=== PATIENT | female | born 1960 | race African-American/Black ===

== ENCOUNTER 2016-05-02 23:04 | Inpatient (IN) ==
[2016-05-02] MEDS ORDERED: HYDROmorphone 2 MG/1 ML VIAL IV STA (23:53)
[2016-05-02] MEDS ORDERED: ONDANSETRON 4 MG/2 ML VIAL IV STA (23:53)
[2016-05-02] MEDS ORDERED: HYDROmorphone 2 MG/1 ML VIAL ONE (23:57)
[2016-05-02] MEDS ORDERED: ONDANSETRON 4 MG/2 ML VIAL ONE (23:57)
[2016-05-03 00:04] LABS: Basophils % 0.1 % (0.0-0.8); Hematocrit 40.5 VOL% (35.7-47.0); Hemoglobin 14.3 GM/DL (12.0-16.0); Immature Granulocytes % 0.2 %; Immature Granulocytes Absolute 0.02 #; Lymphocytes % 11.2 % (21.3-54.2); Mean Corpuscular HGB Conc 35.3 GM/DL (32-36); Mean Corpuscular Hemoglobin 29 PG (27-34); Mean Corpuscular Volume 82.7 FL (87-102); Mean Platelet Volume 10.4 FL (9.6-12.0); Monocytes # 0.2 10*3/uL (0.11-0.8); Monocytes % 1.9 % (1.7-12.7); Neutrophils # 7.4 10*3/uL (1.4-7.4); Neutrophils % 86.6 % (38.7-73.9); Platelet Count 267 10*3/uL (130-400); White Blood Count 8.5 10*3/uL (4.5-13.71)
[2016-05-03 00:11] LABS: PT Patient Result 11.1 SECS; Partial Thromboplastin Time 28.1 SECS (0-40)
[2016-05-03 00:18] LABS: Albumin 4.3 G/DL (3.4-5.0); Bilirubin,Total 0.6 MG/DL (0.2-1.0); Osmolality,Calculated 281.3 MOS/KG (273-304); Potassium 3.7 MMOL/L (3.5-5.1); Total Protein 8.3 G/DL (6.4-8.3)
[2016-05-03] MEDS ORDERED: PANTOPRAZOLE 40 MG VIAL IV STA (01:12)
[2016-05-03] MEDS ORDERED: PANTOPRAZOLE 40 MG VIAL IV ONE (01:18)
--- NOTE | 2016-05-03 01:23 | Emergency Department Note ---
Foster Hurt Brittany, am scribing for, and in the presence of, Bianca Arias DO 23:46. Hugo Hurt Debra, DO, personally performed the services described in this documentation, ascribed by Juany Hutchison in my presence, and it is both accurate and complete . Arrival - Arrival Chief Complaint: Abdominal / Flank Pain Stated Complaint: Acid Reflux ED Nursing Triage Note: c/c nauseated, severe abd pain, started today. Has not been able to eat today. Has not taken BP meds today Mode of Arrival: Wheelchair Limitations: No Limitations Source: Patient, RN Notes Reviewed - History of Present Illness HPI Narrative: Patient is a 55 y/o black female presenting to the ED with c/o paraumbilical abdominal pain with an onset of today. Patient notes having some associated chills, "spitting up," nausea and hematochezia. She states that she is unsure as to whether or not she may have had fever. Patient reports a history of Acid Reflux, but denies a history of Pancreatitis or ETOH abuse. Patient has no other complaint/pain in the ED at this time. Allergies/Adverse Reactions: Allergies Allergy/AdvReac Type Severity Reaction Status Date / Time No Known Allergies Allergy Verified 05/02/16 23:19 Home Medications: Home Medications Medication Instructions Recorded Confirmed Type Lisinopril/Hydrochlorothiazide 1 tablet PO DAILY 04/19/16 05/02/16 History [Lisinopril-Hctz 20-12.5 mg Tab] Loratadine 1 tablet PO DAILY 04/19/16 05/02/16 History Naproxen [Naprosyn Tab] 500 mg PO BID #60 tablet 04/19/16 05/02/16 Rx Tramadol HCl [Tramadol Tab] 50 mg PO DIRECTED PRN 04/19/16 05/02/16 History predniSONE TAB [PredniSONE] 20 mg PO DAILY #15 tablet 04/19/16 05/02/16 Rx Review of System - Review of System 12 point system: reviewed and no additional remarkable complaints except as stated - Review of System Constitutional: Present: chills Gastrointestinal: Present: abdominal pain, nausea, hematochezia Medical,Surgical,& Family Hx - Medical History Cardio: History of: Hypertension Gastrointestinal: History of: GERD Musculoskeletal: History of: Degenerative Disk Disease - Social History Smoking Status: Former smoker Frequency of Alcohol Use: None Type of Drug Use: None Exam Vital Signs: Vital Signs Temperature 97.7 F 05/02/16 23:14 Pulse Rate 77 05/02/16 23:14 Respiratory Rate 20 05/02/16 23:14 Blood Pressure 184/155 05/02/16 23:14 O2 Sat by Pulse Oximetry 99 05/02/16 23:14 - General General appearance: alert, in distress (appears to be uncomfortable) - Head Head exam: Present: atraumatic, normocephalic - Eye Eye exam: Present: PERRL, EOMI - ENT ENT exam: Present: mucous membranes moist, TM's normal bilaterally - Neck Neck exam: Present: full ROM, trachea midline. Absent: tenderness - Chest Chest inspection: Present: symmetric chest wall rise. Absent: tenderness - Respiratory Respiratory exam: Present: normal lung sounds bilaterally. Absent: rales, rhonchi, wheezes - Cardiovascular Cardiovascular exam: Present: regular rate, normal rhythm, normal heart sounds. Absent: murmur, rubs, gallop - Abdominal Exam Abdominal exam: Present: soft, tenderness (diffuse, greater in the paraumbilical area), guarding (mild), normal bowel sounds. Absent: distention, rebound - Extremities Exam Extremities exam: Present: full ROM. Absent: tenderness - Back Exam Back exam: Present: full ROM. Absent: tenderness - Neurological Exam Neurological exam: Present: alert, oriented X3, CN II-XII intact. Absent: motor sensory deficit - Psychiatric Psychiatric exam: Present: normal affect, normal mood - Skin Skin exam: Present: warm, dry, intact, normal color Course Course Narrative: spoke with Dr khan who will admit pt Results - Labs CBC & BMP: 05/02/16 23:37 05/02/16 23:37 Lab Results: I have reviewed the patients labs Labs: Laboratory Tests 05/02/16 05/02/16 23:37 23:37 WBC 8.5 RBC 4.90 Hgb 14.3 Hct 40.5 MCV 82.7 L Plt Count 267 Neut % (Auto) 86.6 H Lymph % (Auto) 11.2 L Lymph # (Auto) 1.0 L INR 1.0 PT Patient/Control Mix 11.1 Circ Anticoag PTT 28.1 Laboratory Tests 05/02/16 23:37 Sodium 141 Potassium 3.7 Chloride 107 Carbon Dioxide 19 L Anion Gap 18.7 H BUN 10 Creatinine 0.90 Glucose 136 H Globulin 4.0 H Albumin/Globulin Ratio 1.0 L Laboratory Tests 05/02/16 23:37 Blood Type B POSITIVE Antibody Screen Negative Laboratory Tests 05/02/16 00:05 Urine Color Yellow Urine Appearance Slightly hazy Urine pH 5.0 Ur Specific [place] 1.025 Urine Protein 100 Urine Glucose (UA) Negative Urine Ketones 80 Urine Blood Moderate Urine Nitrate Negative Urine Bilirubin Negative Urine Urobilinogen < 2.0 H Urine Leukocytes Negative Urine RBC 21 Urine WBC 2 Ur Squamous Epith Cells Occasional Urine Mucus Few Disposition Clinical Impression: Colitis Case discussed with: patient Disposition: Still a Patient Condition: Stable Instructions: Colitis (ED) Time of Disposition: 02:09
[2016-05-03 01:28] LABS: Apearance,Urine Slightly Hazy (Clear); Bilirubin,Urine Negative (Negative); Blood, Urine Moderate mg/dL (Negative); Glucose,Urine (UA) Negative (Negative); Ketones,Urine 80 mg/dL (Negative); Mucus,Urine Few /LPF (Occasional); Nitrite,Urine Negative (Negative); Protein,Urine 100 MG/DL; RBC,Urine 21 /HPF (0-4); Squamous Epithelial Cell,Urine Occasional /HPF (0-10); Urine Color Yellow (Yellow); Urine Specific Gravity 1.025 (1.001-1.035); Urine Urobilinogen < 2.0 EU/DL (0.2-1.0); WBC,Urine 2 /HPF (0-6)
[2016-05-03] MEDS ORDERED: CIPROFLOXACIN INJ 400 MG in PREMIX 1 EACH IV STA (02:06)
[2016-05-03] MEDS ORDERED: metroNIDAZOLE INJ 500 MG in PREMIX 1 EACH IV STA (02:06)
[2016-05-03] MEDS ORDERED: CIPROFLOXACIN 400 MG/200 ML PREMIX IV ONE (02:07)
[2016-05-03] MEDS ORDERED: metroNIDAZOLE 500 MG/100 ML PREMIX IV ONE (02:07)
[2016-05-03] MEDS ORDERED: traMADol 50 MG TABLET PO PRN (03:51)
[2016-05-03] MEDS ORDERED: MORPHINE 2 MG/1 ML SYRINGE IV PRN (03:51)
[2016-05-03] MEDS ORDERED: ONDANSETRON 4 MG/2 ML VIAL IV PRN (03:51)
[2016-05-03] MEDS ORDERED: ACETAMINOPHEN 325 MG TABLET PO PRN (03:51)
[2016-05-03] MEDS ORDERED: ALUM/MAG/SIMETH/LIDO VISC 1:1 30 ML BOTTLE PO STA (03:54)
[2016-05-03] MEDS ORDERED: ALUM/MAG/SIMETH/LIDO VISC 1:1 30 ML BOTTLE PO ONE (04:00)
[2016-05-03] MEDS ORDERED: SODIUM CHLORIDE 0.9% 1,000 ML IV SCH (04:00)
--- NOTE | 2016-05-03 04:03 | Hospitalist History & Physical ---
Assessment and Plan (1) Acute colitis Status: Acute Current Visit: Yes (2) Small bowel intussusception Status: Acute Current Visit: Yes (3) Hypertension Status: Acute Current Visit: Yes (4) Hematochezia Status: Acute Assessment and plan: Plan: 05/03: Admit for IV antibiotics, will start Cipro/Flagyl. Obtain blood cultures. Unclear exactly the etiology of her colitis (ischemic/infectious), no personal history of IBD. Apparently the ER physician spoke with the surgeon who will follow up the patient in the morning. In the meantime supportive care in addition to her antibiotics. Current Visit: Yes History of Present Illness Chief complaint: midabdominal pain, hematochezia History of present illness: Ms. Bruce Rios is a 55 year old female with hypertension and arthritis, who is here with 24 hours of acute worsening of midabdominal pain and hematochezia. She states she's had on and off for the last month. As of scant hematochezia and pain with defecation. She states she had a fairly unremarkable colonoscopy in July 2015 at [facility]. She's had some nausea with vomiting as well today. She rates her pain an 8 out of 10 at worst, currently relieved with pain medication. The pain is nonradiating and prior to receiving pain medication had been constant and severe. Her CT scan showed evidence of colitis and is very small segment of small bowel intussusception. Home Medications Medication Instructions Recorded Confirmed Type Lisinopril/Hydrochlorothiazide 1 tablet PO DAILY 04/19/16 05/02/16 History [Lisinopril-Hctz 20-12.5 mg Tab] Loratadine 1 tablet PO DAILY 04/19/16 05/02/16 History Naproxen [Naprosyn Tab] 500 mg PO BID #60 tablet 04/19/16 05/02/16 Rx Tramadol HCl [Tramadol Tab] 50 mg PO DIRECTED PRN 04/19/16 05/02/16 History predniSONE TAB [PredniSONE] 20 mg PO DAILY #15 tablet 04/19/16 05/02/16 Rx Allergies Allergy/AdvReac Type Severity Reaction Status Date / Time No Known Allergies Allergy Verified 05/02/16 23:19 Medical,Surgical,& Family Hx - Medical History Cardio: History of: Hypertension Endocrine: No history of: Diabetes Mellitus (NIDDM) Respiratory: No history of: COPD Gastrointestinal: History of: GERD Musculoskeletal: History of: Degenerative Disk Disease - Surgical History Reproductive Surgeries: Surgical HX of;: Tubal Ligation - Family History Family History: noncontributory - Social History Smoking Status: Former smoker Have you smoked in the last 12 months: No Frequency of Alcohol Use: None Type of Drug Use: None Marital Status: Unknown Functional capacity: independent ambulation Review of systems: A 12 point review of systems is negative except as specified in the HPI Exam - Constitutional Vitals: Period Temp Pulse Resp BP Sys/Syed Pulse Ox Last 24 Hr 97.7 F 77 20 184/155 99 Exam: EXAM: CONSTITUTIONAL: non toxic, NAD HEENT: NC, AT, OP benign, PATTI, EOMI CV: RRR no m/g/r RESP: clear B/L, no w/r/r GI: abd soft, mild mid/periumbilical tenderness to palpation, no rebound, ND, + bowel sounds INTEGUMENTARY: no lesions or rash EXTREMITIES: no c/c/e NEURO: no focal deficits PSYCH: unremarkable, A/O x3 Results - Labs CBC & BMP: 05/02/16 23:37 05/02/16 23:37 Lab Results: I have reviewed the past 24 hour labs - Diagnostic Findings Procedure: CT Abdomen and Pelvis: image reviewed by me, report reviewed by me
[2016-05-03] MEDS: metroNIDAZOLE INJ 500 MG in PREMIX 1 EACH IV SCH ×3 (04:56→21:47)
[2016-05-03 06:17] LABS: Basophils % 0.2 % (0.0-0.8); Hematocrit 38.8 VOL% (35.7-47.0); Hemoglobin 12.8 GM/DL (12.0-16.0); Immature Granulocytes % 0.4 %; Immature Granulocytes Absolute 0.04 #; Lymphocytes # 1.6 10*3/uL (1.4-4.0); Lymphocytes % 14.8 % (21.3-54.2); Mean Corpuscular Hemoglobin 28 PG (27-34); Mean Corpuscular Volume 85.1 FL (87-102); Mean Platelet Volume 10.1 FL (9.6-12.0); Monocytes # 0.8 10*3/uL (0.11-0.8); Monocytes % 7.3 % (1.7-12.7); Neutrophils # 8.3 10*3/uL (1.4-7.4); Neutrophils % 77.3 % (38.7-73.9); Platelet Count 266 10*3/uL (130-400); Red Blood Count 4.56 10*6/uL (3.8-5.5); Red Cell Distribution Width 13.4 % (9.3-17.3); White Blood Count 10.8 10*3/uL (4.5-13.71)
[2016-05-03 06:57] LABS: Calcium 9.5 MG/DL (8.5-10.1); Magnesium 2.1 MG/DL (1.8-2.4); Potassium 3.4 MMOL/L (3.5-5.1)
--- NOTE | 2016-05-03 06:58 | CT Report ---
Exam: CT abdomen pelvis w con Date: 05/03/2016 12:58 AM Comparison: None Indication: Generalized abdominal pain Technique: Sequential axial scans of the abdomen and pelvis were obtained following the injection of 100 cc of Omnipaque 350. Coronal and sagittal 2-D reconstructions were obtained. This exam was initially interpreted by [facility]. Total DLP: 557.90 Findings: No acute findings at the visualized lung bases. The liver is normal in size with no masses, dilated ducts, or calcified gallstones. The spleen, pancreas, adrenal glands, and kidneys have an unremarkable appearance. The abdominal aorta is normal in size with no adjacent adenopathy. Increased fluid in the stomach and small bowel. Short segment of possible small bowel intussusception in the medial right upper quarter on the initial scans only. The wall of the colon appears thickened. There is air in the appendix which is borderline in size the to minimally enlarged distally measuring 8 mm. No significant adjacent peripancreatic fluid or soft tissue stranding. The uterus is enlarged and contains multiple partially calcified uterine leiomyomata. There is associated compression of the urinary bladder. No free air or significant free fluid. Degenerative changes are noted with sclerosis especially at the L4-L5 disc space. Impression: Initial possible short segment intussusception of the small bowel in the medial right upper quadrant location on the initial scans only. Additional findings which can be seen with enteritis/colitis. The appendix is at the upper limits of normal in size to very minimally enlarged distally which makes it more difficult to exclude possible very early appendicitis as discussed in [facility] report.. Correlation with physical exam is recommended concerning this finding. Uterine enlargement with multiple calcified leiomyomata. It is difficult to exclude additional uterine pathology with these findings. PROCEDURE INTERPRETED AT [facility] DEPARTMENT OF RADIOLOGY Final Report Signed by: Dr. Sierra Berger
[2016-05-03] MEDS: CIPROFLOXACIN INJ 400 MG in PREMIX 1 EACH IV SCH ×2 (07:03→16:02)
[2016-05-03] MEDS: LISINOPRIL/HCTZ 20-12.5 MG TABLET PO SCH (09:53)
[2016-05-03] MEDS: predniSONE 20 MG TABLET PO SCH (09:53)
[2016-05-03] MEDS: POTASSIUM CHLORIDE 20 MEQ TABLET PO PRN (09:53)
[2016-05-03] MEDS: PANTOPRAZOLE 40 MG VIAL IV SCH (09:54)
[2016-05-03] MEDS: LORATADINE 10 MG TABLET PO SCH (09:54)
--- NOTE | 2016-05-03 11:16 | General Surgery Consult Note ---
Assessment and Plan (1) Small bowel intussusception Status: Acute Assessment and plan: I was consult for the management of small bowel intussusception. This is a normal finding on CT scans that just captures the small bowel during the phase of peristalsis were to telescope needed another segment of small bowel. It is not a pathologic condition. On delayed CT images, it actually had already resolved. There is no imaging follow-up this needed and no further workup needed. Please call back with any further questions. Current Visit: Yes History of Present Illness Chief complaint: abdominal pain History of present illness: Ms. Bruce Rios is a 55 year old female who has developed abdominal pain with some intermittent hematochezia and presented to the ER for evaluation. She has had have colitis but also had small bowel intussusception on her initial CT scan images that resolved on delayed images. Home Medications Medication Instructions Recorded Confirmed Type Lisinopril/Hydrochlorothiazide 1 tablet PO DAILY 04/19/16 05/02/16 History [Lisinopril-Hctz 20-12.5 mg Tab] Loratadine 1 tablet PO DAILY 04/19/16 05/02/16 History Naproxen [Naprosyn Tab] 500 mg PO BID #60 tablet 04/19/16 05/02/16 Rx Tramadol HCl [Tramadol Tab] 50 mg PO DIRECTED PRN 04/19/16 05/02/16 History predniSONE TAB [PredniSONE] 20 mg PO DAILY #15 tablet 04/19/16 05/02/16 Rx Allergies Allergy/AdvReac Type Severity Reaction Status Date / Time No Known Allergies Allergy Verified 05/02/16 23:19 Medical,Surgical,& Family Hx - Medical History Cardio: History of: Hypertension Endocrine: No history of: Diabetes Mellitus (NIDDM) Respiratory: No history of: COPD Gastrointestinal: History of: GERD Musculoskeletal: History of: Degenerative Disk Disease, Musculoskeletal Problems (osteoarthritis) - Surgical History Reproductive Surgeries: Surgical HX of;: Tubal Ligation - Family History Family History: Reports;: Family Cancer (father- type unknown), Family Hypertension (Mother and Father) - Social History Smoking Status: Former smoker Frequency of Alcohol Use: None Type of Drug Use: None - Constitutional Constitutional: Present: as per HPI - EENT Nose, mouth and throat: Present: as per HPI - Cardiovascular Cardiovascular: Present: as per HPI - Respiratory Respiratory: Present: as per HPI - Gastrointestinal Gastrointestinal: Present: as per HPI - Genitourinary Genitourinary: Present: as per HPI - Musculoskeletal Musculoskeletal: Present: as per HPI - Neurological Neurological: Present: as per HPI - Endocrine Endocrine: Present: as per HPI Hematologic/Lymphatic: Present: as per HPI Exam - Constitutional Vitals: Period Temp Pulse Resp BP Sys/Syed Pulse Ox Last 24 Hr 98.4 F-99.4 F 74-95 16-20 145-167/75-91 98-100 General appearance: normal weight, no acute distress - Head Head exam: Present: normal inspection, normocephalic - Eye Eye exam: Present: EOMI Pupils: Present: PATTI - ENT ENT exam: Present: normal exam Mouth exam: Present: normal external inspection, normal voice - Neck Neck exam: Present: normal inspection, trachea midline - Respiratory Respiratory exam: Present: clear to auscultation bilaterally. Absent: accessory muscle use, chest wall tenderness - Cardiovascular Cardiovascular exam: Present: RRR. Absent: systolic murmur, tachycardia - GI/Abdominal GI/Abdominal exam: Present: normal bowel sounds, soft. Absent: tenderness, rebound - Extremities Exam Extremities exam: Present: normal inspection, normal capillary refill - Back Exam Back exam: Present: normal inspection - Neurological Exam Neurological exam: Present: alert, oriented X3 Speech: Present: normal - Skin Skin exam: Present: normal color, warm Results - Labs CBC & BMP: 05/03/16 05:59 05/03/16 05:59 - Diagnostic Findings Procedure: CT Abdomen and Pelvis: image reviewed by me, report reviewed by me Specialty Discharge - Follow Up or Referrals - Discharge Medications No Action Loratadine 1 tablet PO DAILY Naproxen [Naprosyn Tab] 500 mg PO BID #60 tablet Lisinopril/Hydrochlorothiazide [Lisinopril-Hctz 20-12.5 mg Tab] 1 tablet PO DAILY Tramadol HCl [Tramadol Tab] 50 mg PO DIRECTED PRN PRN Reason: Pain predniSONE TAB [PredniSONE] 20 mg PO DAILY #15 tablet
[2016-05-04] MEDS: CIPROFLOXACIN INJ 400 MG in PREMIX 1 EACH IV SCH ×2 (03:23→15:13)
[2016-05-04] MEDS: metroNIDAZOLE INJ 500 MG in PREMIX 1 EACH IV SCH ×3 (05:38→20:04)
[2016-05-04 06:43] LABS: Basophils % 0.3 % (0.0-0.8); Eosinophils % 0.1 % (0.00-10.9); Hematocrit 35.2 VOL% (35.7-47.0); Hemoglobin 11.7 GM/DL (12.0-16.0); Immature Granulocytes % 0.3 %; Immature Granulocytes Absolute 0.02 #; Mean Corpuscular HGB Conc 33.2 GM/DL (32-36); Mean Corpuscular Hemoglobin 29 PG (27-34); Mean Corpuscular Volume 86.7 FL (87-102); Monocytes # 0.7 10*3/uL (0.11-0.8); Monocytes % 8.5 % (1.7-12.7); Neutrophils # 5.1 10*3/uL (1.4-7.4); Neutrophils % 64.8 % (38.7-73.9); Platelet Count 224 10*3/uL (130-400); Red Blood Count 4.06 10*6/uL (3.8-5.5); Red Cell Distribution Width 13.9 % (9.3-17.3); White Blood Count 7.9 10*3/uL (4.5-13.71)
[2016-05-04 07:21] LABS: Magnesium 2.1 MG/DL (1.8-2.4); Osmolality,Calculated 293.1 MOS/KG (273-304); Potassium 3.5 MMOL/L (3.5-5.1)
[2016-05-04] MEDS: PANTOPRAZOLE 40 MG VIAL IV SCH (08:46)
[2016-05-04] MEDS: predniSONE 20 MG TABLET PO SCH (08:46)
[2016-05-04] MEDS: LISINOPRIL/HCTZ 20-12.5 MG TABLET PO SCH (08:46)
[2016-05-04] MEDS: LORATADINE 10 MG TABLET PO SCH (08:46)
[2016-05-04 13:01] LABS: Apearance,Urine Slightly Hazy (Clear); Bacteria,Urine Occasional /HPF (Few); Bilirubin,Urine Negative (Negative); Blood, Urine Negative (Negative); Glucose,Urine (UA) Negative (Negative); Hyaline Casts,Urine 5 /LPF (0-3); Ketones,Urine 5 mg/dL (Negative); Mucus,Urine Many /LPF (Occasional); Nitrite,Urine Negative (Negative); Protein,Urine 30 MG/DL; RBC,Urine 4 /HPF (0-4); Squamous Epithelial Cell,Urine Occasional /HPF (0-10); Urine Color Amber (Yellow); Urine Specific Gravity 1.025 (1.001-1.035); Urine Urobilinogen < 2.0 EU/DL (0.2-1.0); WBC,Urine 4 /HPF (0-6)
--- NOTE | 2016-05-04 14:49 | Hospitalist Progress Note ---
Assessment and Plan (1) Acute colitis Status: Acute Assessment and plan: The patient appears to have had viral gastroenteritis causing some acute colitis. The patient continues on intravenous metronidazole. She has no abdominal pain at this time. We will going to observe another night and if the patient's able to tolerate regular diet and has no evidence of toxicity, likely discharge her home tomorrow on oral metronidazole. Current Visit: Yes (2) Hypertension Status: Chronic Current Visit: Yes Qualifiers: Hypertension type: essential hypertension Qualified Code(s): I10 - Essential (primary) hypertension Hospitalist: Subjective Interval history: This patient was admitted to the hospital with abdominal discomfort and apparent viral gastroenteritis. CT scan revealed some signs of intussusception and we obtain Gen. surgery consultation with Dr. whitney. He feels that the CT scans show normal findings of peristalsis. The patient continues to have some fever but is less toxic today. She is able to eat a regular diet but has not yet had bowel movement. The patient has no vomiting or abdominal discomfort today. Exam - Constitutional Vitals: Period Temp Pulse Resp BP Sys/Syed Pulse Ox Last 24 Hr 97.8 F-99.5 F 67-81 16-20 116-141/69-88 97-100 Exam: Constitutional System: Mild distress. No tremulousness. Mild diaphoresis Head: Normocephalic, atraumatic. Ears, Nose and Throat System: No evidence of Otitis or Mastoiditis. No epistaxis or discharge Eyes System: Pupils equal, round, and reactive. Extraocular muscles intact. Neck: Supple, without adenopathy, No jugular venous distention. No thyromegaly , neck mass, or prior surgery apparent. Respiratory System: Chest clear to auscultation. Cardiovascular System: Heart with regular rate and rhythm. No murmur. GI System: Abdomen soft, nontender. Normoactive bowel sounds present. Musculoskeletal System: limbs with no pedal edema. Full distal pulses. Neurological System: No discernable sensory deficit. No aphasia Psychiatric System: Conversation is rational Results - Labs CBC & BMP: 05/04/16 06:20 05/04/16 06:20 Lab Results: I have reviewed the past 24 hour labs Specialty Discharge - Follow Up or Referrals
[2016-05-05] MEDS: POTASSIUM CHLORIDE 20 MEQ TABLET PO PRN ×2 (01:46→04:30)
[2016-05-05] MEDS: metroNIDAZOLE INJ 500 MG in PREMIX 1 EACH IV SCH ×2 (03:29→11:23)
[2016-05-05] MEDS: CIPROFLOXACIN INJ 400 MG in PREMIX 1 EACH IV SCH (04:30)
[2016-05-05] MEDS: PANTOPRAZOLE 40 MG VIAL IV SCH (09:08)
[2016-05-05] MEDS: predniSONE 20 MG TABLET PO SCH (09:08)
[2016-05-05] MEDS: LISINOPRIL/HCTZ 20-12.5 MG TABLET PO SCH (09:08)
[2016-05-05] MEDS: LORATADINE 10 MG TABLET PO SCH (09:08)
--- NOTE | 2016-05-05 11:48 | Discharge Summary ---
Hospital Course - Hospital Course Hospital Course: The patient was admitted to the hospital with abdominal pain, abdominal distention, and some fever. Initial CT scan reports were ambiguous and seemed to show some intussusception. The patient had general surgery consultation with Dr. Landry who did not feel that the findings were consistent with intussusception but more likely a gastroenteritis with enhanced peristalsis. The patient improved while taking intravenous metronidazole. Diet was advanced. The patient returned to usual bowel function and feels much better. She is ready for discharge home to take oral metronidazole for an additional 5 days. On the date of discharge, chest clear, abdomen soft, extremities without edema. - Time spent with patient Time with patient DS: Greater than 30 minutes Diagnosis - Discharge Diagnosis (1) Acute colitis Status: Resolved (2) Hypertension Status: Chronic Specialty Discharge - Follow Up or Referrals Discharge Plan - Discharge Data Disposition: Disch To Home/Self Care Condition at Discharge: Stable Discharge Diet: advance to your usual diet Activity: resume usual activities as tolerated - Discharge Medications New metroNIDAZOLE [Metronidazole Cap/Tab] 250 mg PO TID #15 tablet Continue Loratadine 1 tablet PO DAILY Naproxen [Naprosyn Tab] 500 mg PO BID #60 tablet Lisinopril/Hydrochlorothiazide [Lisinopril-Hctz 20-12.5 mg Tab] 1 tablet PO DAILY Tramadol HCl [Tramadol Tab] 50 mg PO DIRECTED PRN PRN Reason: Pain predniSONE TAB [PredniSONE] 20 mg PO DAILY #15 tablet - Follow Up or Referral Follow Up: Your,pcp [Other] - 2 Weeks - Forms/Instructions Instructions: Colitis (ED) Exam - Constitutional Vitals: Period Temp Pulse Resp BP Sys/Syed Pulse Ox Last 24 Hr 96.9 F-98.7 F 62-93 16-20 92-153/53-85 99-100 Discharge Results Procedures and tests throughout hospitalization: Pending Orders 05/04/16 Urine Culture Routine Labs on day of discharge: Labs from last 24 hours 05/04/16 10:47 Urine Color [place] Urine Appearance Slightly hazy Urine pH 5.0 Ur Specific [place] 1.025 Urine Protein 30 Urine Glucose (UA) Negative Urine Ketones 5 Urine Blood Negative Urine Nitrate Negative Urine Bilirubin Negative Urine Urobilinogen < 2.0 H Urine Leukocytes Small H Urine RBC 4 Urine WBC 4 Ur Squamous Epith Cells Occasional Urine Bacteria Occasional Hyaline Casts 5 Urine Mucus Many Ur Culture Indicated? Results to follow Preliminary micro results at discharge 05/04/16 Unknown Urine Culture - Preliminary Urine,Clean Catch No Growth at 24 hours. 05/03/16 05:59 Blood Culture - Preliminary Blood No growth at 1 day 05/03/16 04:08 Blood Culture - Preliminary Blood No growth at 1 day DS: Provider Date of admission: 05/03/16 03:52 Primary care physician: . No PCP Attending physician on admission: Anand Khan DO Consults: 05/03/16 04:44 Consult to Pharmacy [CONS] Routine Reason for Pharmacy Consult: Adjust Meds Renal Funct Discharging clinician: Dionicio Madrigal MD
[2016-05-05 12:05] VITALS: BP 138/82
== END 2016-05-05 13:16 | disposition home or self-care (01) | DRG 392 ==
LOC: N.ED 23:04 → N.EDINP 05-03 03:51 → SUATTDRO 05-03 03:52 → N.5E 05-03 04:08
PROVIDERS: ADMIT Internal Medicine; ATTEND Internal Medicine